=== PATIENT | female | born 1985 ===

== ENCOUNTER 2020-02-11 15:47 | Day surgery (SDC) | payer SELFPAY ==
[2020-02-11 20:30] LABS: Bacteria/HPF None Seen HPF (None Seen); Bilirubin Negative (Negative); Blood, Urine Trace (Negative); Clarity Clear (Clear); Glucose, Urine (Dipstick) Normal (Negative); Ketone, Urine Negative (Negative); Leukocyte Negative Leu/uL (Negative); Nitrite Negative (Negative); Protein, Urine (Dipstick) Negative (Neg-Trace); RBC/HPF 0-3 HPF (0-3); Specific Gravity, Urine 1.016 (1.002-1.036); Squamous Epithelial 0-3 HPF (0-3); Urobilinogen Normal mg/dL (Less than 2); WBC/HPF 0-3 HPF (0-3); pH, Urine 6.5 (5.0-9.0)
--- NOTE | 2020-02-12 06:08 | HP ---
This is a dictated H&P as [employer] is down. HISTORY OF PRESENT ILLNESS: 34-year-old, G3, P1-0-1-1 at 38.4 weeks dated by LMP consistent with 20.6 week sono, who presents for contractions. She reports contractions present intermittently over the past week, but increasing in intensity since 10:00 a.m. this morning. There is no consistent frequency of them. She also endorses nausea and vomiting present today. Last vomited 2 hours ago. Denies any significant oral intake at all today due to nausea. Has not taken any medication for relief. PAST MEDICAL HISTORY: Denies. OBSTETRICAL HISTORY: History of one successful vaginal delivery in [facility]. One spontaneous with history of D and C. Denies history of sexually transmitted infections. FAMILY HISTORY: Denies. SOCIAL HISTORY: No tobacco, alcohol, or drug use. PRIMARY CARE PHYSICIAN: Dr. Neal at Clinic. LABORATORY DATA: Her OB labs reviewed, blood type A positive. MEDS: She takes aspirin daily in addition to reflux medication and vitamins. ROS: Denies fever, vision changes, chills, chest pain, heart palpitations, shortness of breath or difficulty breathing. She reports lower abdominal contractions. Denies dysuria but does report increasing urine frequency over the past two days in particular. She denies vaginal discharge, bleeding, loss of fluid. Reports movement. Denies lower extremity edema, weakness. PHYSICAL EXAMINATION: VITAL SIGNS: Reviewed and stable. GENERAL: Well-appearing, gravid female, in no apparent distress. HEENT: Normocephalic, atraumatic. RESPIRATORY: Normal respiratory effort. ABDOMEN: Soft, gravid, nontender. EXTREMITIES: No swelling. Pulses regular bilaterally. NST is reactive. Few contractions on monitor so far. The patient's cervix is closed per nurse check. ASSESSMENT: 1. Nausea and vomiting: We will fluid resuscitate with a liter and give Zofran as well. This dehydration could likely be cause for uterine irritability. We will reassess after hydrating. 2. Urinary frequency: We will check with UA to rule out infection. She has induction scheduled on February 14, indicated for polyhydramnios with bedside AMAN of 28.79. She has testing with her next ultrasound scheduled for February 12. The patient was seen and examined by Dr. Bradford, who is in agreement with plan as stated above. At time of my evaluation pt was comfortable with contractions spacing and becoming less severe. sve unchanged. vital wnl. FHT Cat 1. Pt being discharged home. Job ID: [id number] I personally saw and examined the patient during the encounter documented above. Pt report ucx which have improved some over time. The is no evidence of labor. Fetus has a cat 1 tracing. PT d/c home. She has an appt Sunday for IOL. MARGI
== END 2020-02-11 20:03 | disposition home or self-care (01) ==
LOC: L&D/OP 15:47
PROVIDERS: ATTEND Obstetrics & Gynecology
DX: O47.1 False labor at or after 37 completed weeks of gestation (principal); O21.2 Late vomiting of pregnancy; O99.891 Other specified diseases and conditions complicating pregnancy; R35.0 Frequency of micturition; O99.283 Endocrine, nutritional and metabolic diseases complicating pregnancy, third trimester; E86.0 Dehydration; O40.3XX0 Polyhydramnios, third trimester, not applicable or unspecified; O09.293 Supervision of pregnancy with other poor reproductive or obstetric history, third trimester; Z3A.38 38 weeks gestation of pregnancy
CPT/HCPCS: 51701; 81003; 81015; 96360; 96375; 99283

== ENCOUNTER 2020-02-12 07:59 | Outpatient (CLI) | payer SELFPAY ==
--- NOTE | 2020-02-11 19:27 | PDOC.BPN ---
<Jorden Vega - Last Filed: 02/11/20 19:25> - Brief Progress Note recheck at 1900 still closed/thick/high, UA wnl other than positive blood. Pt no longer feelign contractions denies pain or any new problems. FHT 140s and moderate variablity, no decells Will dc home to f/u with oupt physician <Dylan Bradford - Last Filed: 02/12/20 08:01> Addendum - Attending - Attending Attestation Date/Time: 02/12/20 9668 I personally evaluated the patient and discussed the management with Dr. Vega I agree with the History, Examination, Assessment and Plan documented above with any addition or exceptions noted below.
[2020-02-12 22:36] LABS: SARS-CoV-2 MS2 Positive; SARS-CoV-2 N Gene Negative; SARS-CoV-2 S Gene Negative; SARS-CoV-2 by NAA Not Detected (NotDetected); SARS-CoV-2 orf1ab Negative
== END 2020-02-12 08:00 | disposition home or self-care (01) ==
LOC: LABBT 07:59
PROVIDERS: ATTEND Family Medicine
DX: Z20.828 Contact with and (suspected) exposure to other viral communicable diseases (principal)
CPT/HCPCS: 87635; U0003

== ENCOUNTER 2020-02-15 19:15 | Inpatient (IN) | payer MEDICAID, OTHER, SELFPAY ==
[~2020-02-15 19:15] MED LIST: Bupivacaine PF 0.5% 30 ML VIAL ONE
[2020-02-15] MEDS ORDERED: Promethazine HCl 25 MG/ML VIAL IM PRN (20:42)
[2020-02-15] MEDS ORDERED: Ondansetron PF 4 MG/2 ML Vial IVP PRN (20:42)
[2020-02-15] MEDS ORDERED: hydrALAZINE 20 MG/ML VIAL SLOW IVP PRN (20:42)
[2020-02-15] MEDS ORDERED: Acetaminophen 500 MG TAB PO PRN (20:42)
[2020-02-15] MEDS: Lactated Ringer's 1,000 ML IV SCH (21:00)
[2020-02-15 21:11] VITALS: BMI 26.1
[2020-02-15 21:41] LABS: Hemoglobin 11.5 g/dL (12.0-16.0); Mean Corpuscular HGB CONC 34.6 g/dL (32.0-36.0); Mean Corpuscular Hemoglobin 29.3 pg (27.0-31.0); Mean Corpuscular Volume 84.7 fL (78.0-98.0); Mean Platelet Volume 9.2 fL (7.4-10.4); Platelet Count 179 thou/uL (130-400); RBC Distribution Width 11.9 % (11.5-14.5); Red Blood Cell (RBC) Count 3.92 mill/uL (4.20-5.40); White Blood Cell (WBC) Count 5.8 thou/uL (4.8-10.8)
[2020-02-15 21:53] LABS: INR-International Normal Ratio 0.9; PTT 26.4 sec (22.9-36.1); Prothrombin Time 12.5 sec (12.0-14.7)
[2020-02-15 22:09] LABS: Syphilis Antibody Nonreactive (Nonreactive); Syphilis Antibody Index 0.03 S/CO (<1.00 Non-Reactive)
[2020-02-15 22:32] LABS: HBSAg Index 0.14 S/CO (0-0.99); Hep B Surf Ag Non-Reactive S/CO (NonReactive)
--- NOTE | 2020-02-15 22:33 | PDOC.FPROB ---
FMR OB H&P: HPI - History of Present Illness Chief Complaint: mIOL for polyhydramnios History of Present Illness: 34 y/o at 39.1 wks by LMP c/w 20.6 wk sono presents for mIOL for polyhydramnios. She denies any LOF/vaginal bleeding/vaginal discharge. Endorses good movement. No contractions. She is unaware of any major complications during this . Taking PNV. Started taking "antibiotic" yesterday - was prescribed famciclovir. Denies any history of burning or itching vaginal lesions, no current lesions, and no prodromal symptoms today. Has had polyhydramnios, microcephaly on US examinations. 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 Primary Care Physician: NAVID Casey R OB H&P: Current - Care : 3 Para: 1011 Gestational age: 39.1 Due date: 02/21/20 Dating Criteria: LMP c/w 20.6 wk sono Course/Complications: MFM: polyhydramnios, microcephaly Anemia of Advanced maternal age COVID positive in 09/2019 - OB Labs Blood type: A RH: positive Antibody Screen: negative HIV: negative RPR: negative HepBsAg: negative Rubella: immune Quad screen: unknown Urine drug screen: not done Gonorrhea: negative Chlamydia: negative Pap Smear: ASCUS with positive other HR HPV 1 hour gtt: 2 HR 76/172/103 GBS: negative H&H: 11.5/33.2 Platelets: 179 Additional labs: Trichomonas - neg Varicella IgG reactive Toxoplasma IgG 256.0 (high) Toxoplasma IgM 0.194 (negative) CMV IgG 7.2 (positive) CMV IgM <8.0 (negative) HSV IgM (positive) - Additional Ultrasound Additional: 31.2 wk US @ MFM: polyhydramnios, microcephaly, BPP 8/8, growth 15th %tile R OB H&P: History - Past Medical History PMH: hx COVID in 09/2019 - OB History OB History: COVID 09/2019, anemia of , advanced maternal age 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 social etoh use outside of , denies etoh use during - Family History Family History: denies family hx of medical problems FMR OB H&P: Medications - Current Home Medications: Medication Instructions Recorded Confirmed Type Aspirin [Ecotrin Low Strength] 1 tab PO DAILY 02/15/20 02/15/20 History Pnv No.95/Ferrous Fum/Folic AC 1 tab PO DAILY 02/15/20 02/15/20 History [ Vitamins Tablet] Allergies/Adverse Reactions: Allergies Allergy/AdvReac Type Severity Reaction Status Date / Time No Known Allergies Allergy Verified 02/15/20 21:15 FMR OB H&P: ROS - Review of Systems General: denies: fever/chills, weight/appetite/sleep changes, fatigue Eyes: denies: eye pain, vision changes, double vision ENT: denies: nasal congestion, rhinorrhea, sinus pain/pressure, sore throat Cardiovascular: denies: chest pain, palpitation, edema Respiratory: denies: cough, congestion, shortness of breath Gastrointestinal: denies: abdominal pain, indigestion, cramping, nausea, vomiting, diarrhea, constipation Genitourinary (Female): denies: dysuria, hematuria, vaginal discharge, vaginal bleeding, contractions, vaginal pressure Musculoskeletal: reports: pain (low back pain) Neurologic: denies: numbness, syncope, weakness, headache Integumentary: denies: rash, lesions Endocrine: denies: polydipsia, polyuria Hematologic/Lymphatic: denies: prolonged or excessive bleeding Psychological: denies: depression, anxiety FMR OB H&P: Vital Signs - Maternal Vital signs: Vital Signs - First Documented Temp Pulse Resp BP Pulse Ox 98.1 F 72 16 139/82 97 02/15/20 20:33 02/15/20 20:33 02/15/20 20:33 02/15/20 20:33 02/15/20 20:33 - Heart Tones Baseline: 135 Variability: moderate Acceleration: present Deceleration: absent Category: category 1 [place] contractions every: absent FMR OB H&P: Physical Exam - Physical Exam General: NAD, awake, alert and oriented HEENT: normocephalic and atraumatic, EOMI, MMM, conjunctiva clear, no scleral icterus, grossly normal vision, grossly normal hearing, good dention Neck: supple, no LAD Chest: non-tender to palpation Breast: symmetric, no skin changes, no erythema Heart: RRR, normal S1/S2, no murmurs/rubs/gallops, pulses present, no edema General: CTAB, no respiratory distress, good air movement, no rales/rhonchi, no wheezing, no retractions Abdomen: soft, gravid, non-tender Musculoskeletal: normal gait and station, pulses present Neurological: sensation to pain,touch and proprioception grossly normal, DTR +1, no clonus Skin: no rash, good tugor, capillary refill <2 seconds Lymphatic: no unusual bruising or bleeding, no purpura, no petechia Psychiatric: intact recent and remote memory, good judgement and insight, normal mood and affect - Pelvic Exam Vulva: normal hair distribution, no masses, no lesions, no blood SVE: cl/50/-1 Cordero score: 5 Membranes: intact Presentation: initially breech, converted to vertex on bedside sono FMR OB H&P: Results - Labs Lab results: Laboratory Results - last 24 hr 02/15/20 02/15/20 02/15/20 21:01 21:01 21:01 WBC RBC Hgb Hct MCV MCH MCHC RDW Plt Count MPV PT 12.5 INR 0.9 APTT 26.4 Syphilis IgG/IgM Ab Nonreactive Blood Type A POSITIVE Antibody Screen NEGATIVE Crossmatch See Detail 02/15/20 21:01 WBC 5.8 RBC 3.92 L Hgb 11.5 L Hct 33.2 L MCV 84.7 MCH 29.3 MCHC 34.6 RDW 11.9 Plt Count 179 MPV 9.2 PT INR APTT Syphilis IgG/IgM Ab Blood Type Antibody Screen Crossmatch FMR OB H&P: A/P Disposition: Term sIUP, mIOL for polyhydramnios @ 39.1 wks by LMP c/w 20.6 wk sono presents for mIOL for polyhydramnios. - Initially breech on bedside sono, spontaneously converted to vertex positioning. Suspect excess fluid is contributing factor. - Will cautiously proceed with induction for desired vaginal delivery, with frequent bedside sono to ensure fetus remains vertex. - category 1 strip - SVE closed/50/-1/firm/anterior - cytotec for cervical ripening and will reassess SVE in 4 hours HSV IgM positive Speculum exam performed without evidence of active HSV lesions. No prodromal symptoms. Polyhydramnios microcephaly - AMAN 28 on most recent available US - [facility] labs: Toxoplasma IgG 256.0 (high), Toxoplasma IgM 0.194 (negative), CMV IgG 7.2 (positive), CMV IgM <8.0 (negative), HSV IgM (positive), RPR negative, Rubella IgG reactive - will need to notify neonatology at , suture examination recommended per [employer] ASCUS with HR HPV - Will need colposcopy 6 weeks PP. Anemia of -aware, monitor H/H Advanced Maternal Age - aware Discussion: Date/Time: 02/15/202232 This H&P was discussed with Dr. Tadeo and Dr. Trimble who agree with the above documentation and plan.
[2020-02-16] MEDS ORDERED: Carboprost 250 MCG/ML AMP IM PRN
[2020-02-16] MEDS ORDERED: Methylergonovine 0.2 MG/ML VIAL IM PRN
[2020-02-16] MEDS ORDERED: Misoprostol 200 MCG TAB PR PRN
[2020-02-16] MEDS ORDERED: Ibuprofen 800 MG TAB PO PRN
[2020-02-16] MEDS ORDERED: NS / Oxytocin 40 units/1000ml 1,000 ML IV PRN
[2020-02-16] MEDS ORDERED: Lidocaine 1% (PF) 30 ML VIAL SC PRN
[2020-02-16] MEDS: Misoprostol 100 MCG TAB VAG SCH ×5 (00:22→22:36)
[2020-02-16] MEDS: Lactated Ringer's 1,000 ML IV SCH ×3 (04:45→22:37)
--- NOTE | 2020-02-16 04:54 | PDOC.LDPN ---
Labor & Delivery Progress Note - Subjective Subjective: comfortable - Objective Abnormal vital signs: BP 141/70, 146/75 General: breathing through contractions SVE: /-1 FHT: category 1, variability present [place] contractions every: 1-2 min -: Term sIUP, mIOL for polyhydramnios @ 39.2 wks by LMP c/w 20.6 wk sono presents for mIOL for polyhydramnios. - Initially breech on bedside sono, spontaneously converted to vertex positioning. Suspect excess fluid is contributing factor. - Will cautiously proceed with induction for desired vaginal delivery, with frequent bedside sono to ensure fetus remains vertex. - category 1 strip - SVE @ 0025 closed/50/-1/firm/anterior, cytotec #1 - SVE @ 0430 /-1 cat 1 FHT, ctx q1-2 min, remains vertex on bedside sono - continue to monitor, will repeat bedside sono and place additonal cytotec when contractions less frequent per protocol if remains vertex Elevated BP Elevated, asymptomatic, no severe range pressures. Plt wnl on admission. - check urine pr/cr - check CMP - continue to monitor pressures - tx if >160/110 Anemia of Possible hx of PPH in past delivery - patient denies although previously reported. - coagulation panel wnl on admission Libby Li DO, PGY-1 Plan to be discussed with attending Dr. Trimble.
[2020-02-16 05:47] LABS: ALT (SGPT) 12 U/L (8-55); AST (SGOT) 15 U/L (5-34); Alkaline Phosphatase 96 U/L (40-110); Anion Gap 15 mmol/L (10-20); BUN (Urea Nitrogen) 8 mg/dL (7.0-18.7); Bilirubin, Total 0.4 mg/dL (0.2-1.2); Calc. Creatinine Clearance 118 mL/min (70-130); Calcium 8.4 mg/dL (7.8-10.44); Carbon Dioxide 19 mmol/L (22-29); Chloride 106 mmol/L (98-107); Glucose 87 mg/dL (70-105); Potassium 3.9 mmol/L (3.5-5.1); Sodium 136 mmol/L (136-145)
--- NOTE | 2020-02-16 06:18 | PDOC.LDPN ---
Labor & Delivery Progress Note - Subjective Subjective: comfortable - Objective Abnormal vital signs: 140/84 General: NAD, resting Uterine fundus: non tender SVE: /-1 FHT: category 1, variability present [place] contractions every: q2min -: Term sIUP, mIOL for polyhydramnios @ 39.2 wks by LMP c/w 20.6 wk sono presents for mIOL for polyhydramnios. - Initially breech on bedside sono, spontaneously converted to vertex positioning. - Will cautiously proceed with induction for desired vaginal delivery, with frequent bedside sono to ensure fetus remains vertex. - FHT: Cat 1, 130/mod bill/+accel, no decel - SVE @ 0025 closed/50/-1/firm/anterior, cytotec #1 - SVE @ 0430 /-1 cat 1 FHT, ctx q1-2 min, remains vertex on bedside sono - SVE @ 0930 /-1 cat 1 FHT, ctx q2min, remains vertex on bedside sono - continue to monitor, consider cytotec #2 once contractions space out Elevated BP - Elevated on admission, currently normotensive, - asymptomatic, no severe range pressures. Plt wnl on admission - Ur protein <10 - CMP WNL - continue to monitor pressures - tx if >160/110 Anemia of - Possible hx of PPH in past delivery - patient denies although previously reported. - coagulation panel wnl HSV IgM + -continue valacyclovir Plan to be discussed with attending Addendum - Attending - Attending Attestation Date/Time: 02/16/20 4001 I personally evaluated the patient and discussed the management with the team. I agree with the History, Examination, Assessment and Plan documented above with any addition or exceptions noted below. Clearly vertex on BSUS with large amount, subjectively, of fluid. Continue cervical ripening. In light of variable lie will hold off on balloon unless completely necessary.
[2020-02-16 06:31] LABS: Creatinine, Urine 20.68 mg/dL (47-110); Protein, Urine Random Quant Less than 10 mg/dL (1-14)
[2020-02-16] MEDS ORDERED: valACYclovir 500 MG TAB PO SCH ×2 (12:00→21:00)
[2020-02-16] MEDS: Butorphanol Tartrate 1 MG/ML VIAL SLOW IVP PRN ×2 (14:12→18:17)
--- NOTE | 2020-02-16 17:19 | PDOC.LDPN ---
Labor & Delivery Progress Note - Subjective Subjective: painful contractions (mild-mod), other (called for bleeding. 100-150 cc blood/clots on liza in bathroom. ) - Objective Vital signs reviewed and normal: yes General: NAD Uterine fundus: non tender Dilation: 3/50/-2, tense bag FHT: category 1 (most recnetly mod bill, + accels, no decels) [place] contractions every: q1-2 m Other exam findings: ~10 cc blood with slow dark trickle Plan: other (I discussed with patient possibility of abruption vs bleeding related to cervical change. Will monitor closely. Discussed with Dr. Trimble. Recheck in ~1 hour and consider controlled AROM at that time.)
--- NOTE | 2020-02-16 17:28 | PDOC.LDPN ---
Labor & Delivery Progress Note - Subjective Subjective: comfortable - Objective Vital signs reviewed and normal: yes General: NAD, resting Uterine fundus: non tender SVE: 50/-2 FHT: category 1, variability present [place] contractions every: q2min -: Term sIUP, mIOL for polyhydramnios @ 39.2 wks by LMP c/w 20.6 wk sono presents for mIOL for polyhydramnios. - Initially breech on bedside sono, spontaneously converted to vertex positioning. - Will cautiously proceed with induction for desired vaginal delivery, with frequent bedside sono to ensure fetus remains vertex. - FHT: Cat 1, 130/mod bill/+accel, no decel - SVE @ 0025 closed/50/-1/firm/anterior, cytotec #1 - SVE @ 0430 75/-1 cat 1 FHT, ctx q1-2 min, remains vertex on bedside sono - SVE @ 0930 /-1 cat 1 FHT, ctx q2min, remains vertex on bedside sono - cytotec #2 was placed @ 1045 - SVE @ 1400 50/-2 cat 1 FHT, ctx q2min - continue to monitor Elevated BP - Elevated on admission, currently normotensive - asymptomatic, no severe range pressures. Plt wnl on admission - Ur protein <10 - CMP WNL - continue to monitor pressures - tx if >160/110 Anemia of - Possible hx of PPH in past delivery - patient denies although previously reported. - coagulation panel wnl HSV IgM + -continue valacyclovir
--- NOTE | 2020-02-16 17:33 | PDOC.LDPN ---
Labor & Delivery Progress Note - Subjective Subjective: comfortable - Objective Vital signs reviewed and normal: yes General: NAD, breathing through contractions Uterine fundus: non tender SVE: /-2 FHT: category 1, variability present [place] contractions every: 2min -: Term sIUP, mIOL for polyhydramnios @ 39.2 wks by LMP c/w 20.6 wk sono presents for mIOL for polyhydramnios. - Initially breech on bedside sono, spontaneously converted to vertex positioning. - Will cautiously proceed with induction for desired vaginal delivery, with frequent bedside sono to ensure fetus remains vertex. - FHT: Cat 1, 130/mod bill/+accel, no decel - SVE @ 0025 closed/50/-1/firm/anterior, cytotec #1 - SVE @ 0430 /-1 cat 1 FHT, ctx q1-2 min, remains vertex on bedside sono - SVE @ 0930 /-1 cat 1 FHT, ctx q2min, remains vertex on bedside sono - cytotec #2 placed @ 1045 - SVE @ 1400 50/-2 cat 1 FHT, ctx q2min - continue to monitor Elevated BP - Elevated on admission, currently normotensive, - asymptomatic, no severe range pressures. Plt wnl on admission - Ur protein <10 - CMP WNL - continue to monitor pressures - tx if >160/110 Anemia of - Possible hx of PPH in past delivery - patient denies although previously reported. - coagulation panel wnl HSV IgM + -continue valacyclovir
[2020-02-16] MEDS ORDERED: Bupivacaine 0.5% 20 ML, fentaNYL Citrate/PF 400 MCG in Sodium Chloride 0.9% 72 ML EPIDURAL SCH (18:45)
[2020-02-16] MEDS ORDERED: DISCONTINUE ALL PREVIOUS NARCOTICS FS SCH (18:45)
[2020-02-16] MEDS ORDERED: diphenhydrAMINE 50 MG/ML VIAL IVP PRN (19:46)
[2020-02-16] MEDS ORDERED: Lactated Ringer's 500 ML IV PRN (19:46)
[2020-02-16] MEDS ORDERED: Acetaminophen 325 MG TAB PO PRN (19:46)
[2020-02-16] MEDS ORDERED: Naloxone HCl 0.4 mg/ml Vial IVP PRN ×2 (19:46)
[2020-02-16] MEDS ORDERED: ePHEDrine 50 MG/ML VIAL SLOW IVP PRN (19:46)
[2020-02-16] MEDS ORDERED: Promethazine HCl 25 MG/ML VIAL IM PRN (19:46)
[2020-02-16] MEDS ORDERED: Ondansetron PF 4 MG/2 ML Vial IVP PRN ×2 (19:46→21:10)
[2020-02-16] MEDS ORDERED: Communication Order-Pharmacy FS SCH (20:00)
[2020-02-16] MEDS ORDERED: Fentanyl 4 mcg/Bupivacaine 0.1% Cassette 100 ML EPIDURAL SCH (20:00)
--- NOTE | 2020-02-16 20:47 | PDOC.LDPN ---
Labor & Delivery Progress Note - Subjective Subjective: painful contractions - Objective Abnormal vital signs: elevated SBP 150s - no severe range pressures General: breathing through contractions Uterine fundus: palpable contractions [place] contractions every: 1-2 min AROM: clear fluid -: Term sIUP, mIOL for polyhydramnios @ 39.2 wks by LMP c/w 20.6 wk sono presents for mIOL for polyhydramnios. - Initially breech on bedside sono, spontaneously converted to vertex positioning. - Will cautiously proceed with induction for desired vaginal delivery, with frequent bedside sono to ensure fetus remains vertex. - FHT: Cat 1, 130/mod bill/+accel, no decel - SVE @ 0025 closed/50/-1/firm/anterior, cytotec #1 - SVE @ 0430 175/-1 cat 1 FHT, ctx q1-2 min, remains vertex on bedside sono - SVE @ 0930 175/-1 cat 1 FHT, ctx q2min, remains vertex on bedside sono - cytotec #2 placed @ 1045 - SVE @ 1400 3/50/-2 cat 1 FHT, ctx q2min - SVE @ 1700 3/50/-2, cat 1 FHT ctx q2 min - SVE @ 1800 4/50/-2, cat 1 FHT, ctx q2 min, vertex on bedside sono. Controlled AROM performed with pudendal needle under visualization with speculum. Slow leak of clear fluid, FHT remain cat 1 s/p controlled AROM. Epidural per patient request. - 1999 paged by nurse, with tense bag and recurrent late decels. AROM with hook. FSC placed. Delivery imminent, will remain at bedside for monitoring and intervention at needed. Elevated BP - Intermittently elevated BP - asymptomatic, no severe range pressures. Plt wnl on admission - Ur protein <10 - CMP WNL - continue to monitor pressures - tx if >160/110 Anemia of - Possible hx of PPH in past delivery - patient denies although previously reported. - coagulation panel wnl HSV IgM + -continue valacyclovir B. Rehg, DO, PGY-[address] Trimble.
--- NOTE | 2020-02-16 21:04 | PDOC.OPDEL ---
OB Operative/Delivery Note - Additional Findings/Plan Compilations/Other Findings: Delivering Physician: Demi Casey/Libby Li Attending: Dr. Trimble Procedure: Vacuum-Assisted Vaginal Delivery Anesthesia: epidural QBL: 387 ml Pre-op Diagnosis: 1. Term intrauterine in labor 2. Polyhydramnios 3. microcephaly Post-op Diagnosis: 1. Term intrauterine , delivered 2. same as above Indications: A 34 y/o female presents for medical induction of labor for polyhydramnios. Delivery Note: This is 34 yo F @ 39.2 wks who delivered a viable F at 20:35. Developed prolonged late decelerations and deep variables; a mushroom cup vacuum was applied at 3+ station in OA position. After one pull, no pop-offs, 10 second application, a vigorous female was delivered over an intact perineum in the occipitoanterior position. Anterior Shoulder and then remainder of the body delivered. Nuchal cord and hand x 1 was reduced. The head was held down and mouth and nares were bulb suctioned. Cord clamped after delayed cord clamping and cut and cord blood collected. Placenta delivered intact in the [place] presentation with a 3 vessel cord noted. Fundal massage was performed and the fundus was firm. The cervix and vagina were inspected and found to be free of lacerations. went to nursery in good condition for routine care. Apgars were 9/9 at 1 & 5 minutes, respectively. Patient tolerated delivery well and went to after routine recovery/care.
[2020-02-16] MEDS ORDERED: Milk Of Magnesia 30 ML UDCUP PO PRN (21:10)
[2020-02-16] MEDS ORDERED: diphenhydrAMINE 25 MG CAP PO PRN (21:10)
[2020-02-16] MEDS ORDERED: Preparation H Ointment 28 GM TUBE PR PRN (21:10)
[2020-02-16] MEDS ORDERED: Lanolin Ointment 7 GM TUBE TOP PRN (21:10)
[2020-02-16] MEDS ORDERED: Bisacodyl 10 MG SUPP PR PRN (21:10)
[2020-02-16] MEDS ORDERED: Benzocaine-Menthol 82.5 ML CAN TOP PRN (21:10)
[2020-02-16] MEDS ORDERED: hydrALAZINE 20 MG/ML VIAL SLOW IVP PRN (21:10)
[2020-02-16] MEDS ORDERED: Acetaminophen 500 MG TAB PO PRN (21:12)
[2020-02-16] MEDS ORDERED: NS / Oxytocin 40 units/1000ml 1,000 ML IV SCH (21:15)
[2020-02-16] MEDS: Ibuprofen 800 MG TAB PO SCH (22:43)
[2020-02-16 23:47] LABS: #Basophils 0.1 thou/uL (0.0-0.2); #Lymphocytes 0.7 thou/uL (1.20-3.40); #Monocytes 0.4 thou/uL (0.11-0.59); %Basophils 0.4 % (0.0-1.0); %Eosinophils 0.1 % (0.0-10.0); %Lymphocytes 4.5 % (21.0-51.0); %Monocytes 2.2 % (0.0-10.0); %Neutrophils 92.8 % (42.0-75.0); Hemoglobin 11.7 g/dL (12.0-16.0); Mean Corpuscular HGB CONC 35.2 g/dL (32.0-36.0); Mean Corpuscular Hemoglobin 29.8 pg (27.0-31.0); Mean Corpuscular Volume 84.8 fL (78.0-98.0); Platelet Count 168 thou/uL (130-400); RBC Distribution Width 11.9 % (11.5-14.5); Red Blood Cell (RBC) Count 3.91 mill/uL (4.20-5.40); White Blood Cell (WBC) Count 16.2 thou/uL (4.8-10.8)
[2020-02-17 00:08] LABS: ALT (SGPT) 13 U/L (8-55); AST (SGOT) 20 U/L (5-34); Albumin 2.8 g/dL (3.5-5.0); Alkaline Phosphatase 94 U/L (40-110); Anion Gap 18 mmol/L (10-20); BUN (Urea Nitrogen) 9 mg/dL (7.0-18.7); Bilirubin, Total 0.4 mg/dL (0.2-1.2); Calc. Creatinine Clearance 100 mL/min (70-130); Calcium 8.3 mg/dL (7.8-10.44); Carbon Dioxide 16 mmol/L (22-29); Chloride 106 mmol/L (98-107); Globulin 2.8 g/dL (2.4-3.5); Glucose 216 mg/dL (70-105); Potassium 3.8 mmol/L (3.5-5.1); Protein, Total 5.6 g/dL (6.0-8.3); Sodium 136 mmol/L (136-145)
[2020-02-17] MEDS: Misoprostol 100 MCG TAB VAG SCH (00:33)
[2020-02-17 00:38] LABS: Creatinine, Urine 34.44 mg/dL (47-110)
[2020-02-17 01:26] LABS: Creatinine, Urine 40.24 mg/dL (47-110); Protein, Urine Random Quant Less than 10 mg/dL (1-14)
[2020-02-17] MEDS: Ibuprofen 800 MG TAB PO SCH ×3 (05:54→22:20)
[2020-02-17 06:25] LABS: Hemoglobin 10.5 g/dL (12.0-16.0)
--- NOTE | 2020-02-17 07:33 | PDOC.PP ---
Post Progress Note Post Day #: 1 Subjective: Pt bonding with well, feedings are going well via breast able to ambulate well, tolerating light diet. Urinating and had BM easily. pain well controlled light lochia amount of period PO intake tolerated: yes Flatus: yes Ambulation: yes Weight Weight 56.699 kg - Physical Examination General: NAD Cardiovascular: no m/r/g, RRR Respiratory: clear to auscultation bilaterally Abdominal: + bowel sounds, lochia, no distention, appropriately TTP Fundus firm & at: just below umbilicus Skin: no rash Neurological: no gross focal deficits Psychiatric: A&Ox3, normal affect Result Diagrams: 02/17/20 06:09 02/16/20 23:25 Additional Labs: Post Labs Hep Bs Antigen Non-Reactive S/CO (NonReactive) 02/15/20 21:01 Blood Type A POSITIVE 02/15/20 22:25 Laboratory Tests 02/17/20 02/17/20 01:03 06:09 Hgb 10.5 L Hct 30.1 L U Random Total Protein Less than 10 Urine Creatinine 40.24 L - Assessment/Plan Term delivered via VAVD PP day #1 -pain management, ambulate, daley with . - monitor BP closely. have been elevated. No severe range overnight and urine pro/cr ratio neg. - Medical induction of labor for polyhydramnios. HSV IgM positive Speculum exam performed without evidence of active HSV lesions before delivery ASCUS with HR HPV - Will need colposcopy 6 weeks PP. Anemia of -aware, monitor H/H - stable, continue iron for 6 weeks PP Dispo: stable, inpt>48 hr hx stay anticipate d/c home tomorrow. will monitor BP's Addendum - Attending - Attending Attestation Date/Time: 02/17/20 1064 I personally evaluated the patient and discussed the management with the team. I agree with the History, Examination, Assessment and Plan documented above with any addition or exceptions noted below.
[2020-02-17] MEDS ORDERED: valACYclovir 500 MG TAB PO SCH (09:00)
[2020-02-17] MEDS ORDERED: Adacel (T-DAP) 0.5 ML SYRINGE IM ONE (09:00)
[2020-02-17] MEDS: Prenatal Vitamin 1 TAB PO SCH (09:09)
[2020-02-17] MEDS: Ferrous Sulfate 325 MG TAB PO SCH ×2 (09:12→17:27)
[2020-02-17] MEDS: Docusate Calcium (SURFAK) 240 MG CAP PO SCH ×2 (09:12→22:19)
[2020-02-18] MEDS: Ibuprofen 800 MG TAB PO SCH (05:59)
--- NOTE | 2020-02-18 07:41 | PDOC.PP ---
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 will chose before leaving. light lochia pain controlled PO intake tolerated: yes Flatus: yes Ambulation: yes Weight Weight 56.699 kg - Physical Examination General: NAD Cardiovascular: no m/r/g, RRR Respiratory: clear to auscultation bilaterally, non-labored breathing Abdominal: + bowel sounds, lochia, no distention, appropriately TTP Skin: no rash Psychiatric: A&Ox3, normal affect Result Diagrams: 02/17/20 06:09 02/16/20 23:25 Additional Labs: Post Labs Hep Bs Antigen Non-Reactive S/CO (NonReactive) 02/15/20 21:01 Blood Type A POSITIVE 02/15/20 22:25 (1) Vacuum-assisted vaginal delivery Code(s): Z37.9 - OUTCOME OF DELIVERY, UNSPECIFIED Status: Acute - Assessment/Plan Term delivered via VAVD PP day #2 -pain management, ambulate, daley with . - No severe range BP only one elvated >140. f/u with [facility] in 2 weeks - Medical induction of labor for polyhydramnios. HSV IgM positive Speculum exam performed without evidence of active HSV lesions before delivery ASCUS with HR HPV - Will need colposcopy 6 weeks PP. Anemia of -aware, monitor H/H - stable, continue iron for 6 weeks PP Dispo: stable, inpt>48 hr hx stay anticipate d/c home today. f/u in 2 weeks at [facility] Addendum - Attending - Attending Attestation Date/Time: 02/18/20 9742 I personally evaluated the patient and discussed the management with the team. I agree with the History, Examination, Assessment and Plan documented above with any addition or exceptions noted below. Doing well, no severe symptoms. Elevated p/c on a bloody sample with repeat normal. Follow up in clinic. ER precautions.
[2020-02-18 08:13] VITALS: BP 114/69; TEMP 98
[2020-02-18] MEDS: Ferrous Sulfate 325 MG TAB PO SCH (08:48)
[2020-02-18] MEDS: Prenatal Vitamin 1 TAB PO SCH (09:05)
[2020-02-18] MEDS: Docusate Calcium (SURFAK) 240 MG CAP PO SCH (09:05)
== END 2020-02-18 13:56 | disposition home or self-care (01) | DRG 806 ==
LOC: L&D 19:44 → 3SW 02-17 04:37
PROVIDERS: ADMIT Family Medicine; ATTEND Family Medicine
PROC: 10E0XZZ Delivery of Products of Conception, External Approach (ICD-10-PCS; principal; 2020-02-15)
PROC: 10907ZC Drainage of Amniotic Fluid, Therapeutic from Products of Conception, Via Natural or Artificial Opening (ICD-10-PCS; 2020-02-15)
PROC: 3E0P7VZ Introduction of Hormone into Female Reproductive, Via Natural or Artificial Opening (ICD-10-PCS; 2020-02-15)
PROC: 3E033VJ Introduction of Other Hormone into Peripheral Vein, Percutaneous Approach (ICD-10-PCS; 2020-02-15)
DX: O40.3XX0 Polyhydramnios, third trimester, not applicable or unspecified (principal); O98.52 Other viral diseases complicating childbirth; Z37.0 Single live birth; Z20.828 Contact with and (suspected) exposure to other viral communicable diseases; O35.8XX0 Maternal care for other (suspected) fetal abnormality and damage, not applicable or unspecified; O99.02 Anemia complicating childbirth; D64.9 Anemia, unspecified; B00.9 Herpesviral infection, unspecified; Z3A.39 39 weeks gestation of pregnancy
CPT/HCPCS: 36415; 51702; 80053; 82570; 84156; 85014; 85018; 85025; 85027; 85610; 85730; 86780; 86850; 86900; 86901; 87340; 88307; J0595; J2405; J3010; J3490; S0020